=== PATIENT | male | born 1955 | race American Indian/Alaskan Native ===

== ENCOUNTER 2017-06-23 05:01 | Emergency (ER) | payer SELFPAY ==
[2017-06-23 05:28] LABS: Urine Drugs of Abuse Note Disclamer
[2017-06-23 05:48] LABS: Bilirubin,Urine NEG (Negative); Blood,Urine NEG (Negative); Ketones,Urine NEG (Negative); Leukocyte Esterase,Urine NEG (Negative); Mucus,Urine FEW /HPF; Nitrite,Urine NEG (Negative); Protein,Urine <15 mg/dL mg/dL (Negative); Urobilinogen,Urine < 2.0 mg/dL (<2.0); WBC,Urine < 1.0 /HPF (0.0-6.0)
[2017-06-23 05:53] LABS: Basophils % (Auto) 0.5 % (0.0-1.8); Eosinophils % (Auto) 2.7 % (0.0-4.3); Hematocrit 36.4 % (35.5-45.6); Hemoglobin 11.6 gm/dl (11.8-15.2); Mean Corpuscular HGB Conc 32 % (32-34); Mean Corpuscular Volume 70 fl (84-94); Platelet Count 302 K/mm3 (140-440); Red Blood Count 5.18 M/mm3 (3.65-5.03); White Blood Count 5.5 K/mm3 (4.5-11.0)
[2017-06-23 06:02] LABS: Mean Corpuscular Hemoglobin 22 pg (28-32)
[2017-06-23 06:03] LABS: Red Cell Distribution Width 20.2 % (13.2-15.2)
[2017-06-23 06:09] LABS: Anion Gap 16 mmol/L; BUN/Creatinine Ratio 24; Blood Urea Nitrogen 17 mg/dL (9-20); Calcium 8.6 mg/dL (8.4-10.2); Carbon Dioxide 26 mmol/L (22-30); Chloride 100.3 mmol/L (98-107); Glucose 172 mg/dL (75-100); Potassium 3.5 mmol/L (3.6-5.0); Sodium 139 mmol/L (137-145)
[2017-06-23] MEDS ORDERED: TYLENOL #3 PO ONE (07:22)
[2017-06-23] MEDS ORDERED: K-DUR PO ONE (07:22)
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
--- NOTE | 2017-06-23 09:39 | Cat Scan Report ---
FINAL REPORT EXAM: CT HEAD/BRAIN WO CON HISTORY: headache TECHNIQUE: CT of the Head without IV contrast. PRIORS: None currently available. FINDINGS: Series 4:47 demonstrates low-attenuation extra-axial fluid collections in both parietal regions with a thickness on the right measuring 10.7 mm and on left measuring 10.5 mm. Mixed densities identified but mostly low attenuation. In the more dependent areas particularly on series 4:39 there may be punctate areas of higher density. Findings probably represent bilateral subdural hematomas, probably subacute to chronic. No intraparenchymal hemorrhages. There is no evidence for acute ischemia. No herniation. There is no midline shift. There is no hydrocephalus. There is no mass. Age appropriate ochoa-white matter attenuation is noted. There is no calvarial fracture. Scalp contusion. Right lateral metallic artifact may represent a skin stable. The temporal bones demonstrate aerated mastoid air cells. The middle ears appear unremarkable. Paranasal sinuses are unremarkable. Globes are intact. IMPRESSION: Bilateral subdural hematomas in both parietal regions. Suspect subacute to chronic. June 23, 2017 at 0635 PST: I discussed findings over the phone with Dr. Jackson.
--- NOTE | 2017-06-23 09:46 | Cat Scan Report ---
FINAL REPORT EXAM: CT CERVICAL SPINE WO CON HISTORY: neck pain TECHNIQUE: CT of the Cervical Spine without IV contrast. Coronal and sagittal reformatted images were provided. PRIORS: None currently available. FINDINGS: Posterior fusion hardware at C4-C5 appears grossly intact but causes streak artifact. Anterior cervical device with ankylosis and interbody disc spacer C5-C6 also appears intact. Spinous process fixations also noted at C5-C6. Hardware is intact. Straightening of the normal lordotic alignment. Bilateral laminectomies noted at C3-C4. Series 2:30 8-39 demonstrates a comminuted fracture of the anterior left left central portion of the ring of C1 with mild 2.8 mm displacement. Fracture extends inferiorly toward the left lateral masses C1 and partially involves the inferior articular surface. Posteriorly fracture appears to be extending through the posterior lateral ring of C1 on series 2:39. This fracture extends through a horizontal vertebral foramina in and is minimally displaced. Series 2:84 demonstrates a linear low density at the posterior aspect of the vertebral body of C5 which may represent a nondisplaced hairline fracture or nutrient vessel. Fracture suspected given its unusual appearance and location. There is no atlantooccipital dislocation. Occipitiocervical joint is intact. C1-C2: Moderate arthrosis. Basilar invagination. Prominence of the transverse ligament. Mild spinal canal narrowing. Stir mild degenerative changes are present within cervical spine. No significant canal narrowing. Some neural foraminal narrowing identified. Prevertebral soft tissue structures are unremarkable. IMPRESSION: Fracture of C1 through the left anterior central portion extending inferiorly involving the left lateral mass and extending posteriorly through the left C1 ring partially involving the left vertebral foramen. Further evaluation with a CTA of the neck is recommended. Partial hairline fracture of the posterior vertebral body of C5 also suspected. Postsurgical changes and hardware appear intact without loosening or dislodgement. Straightening of the normal lordotic alignment. Degenerative discs.
[2017-06-23 14:22] VITALS: BP 126/71
--- NOTE | 2017-06-23 15:27 | XRay Report ---
FINAL REPORT EXAM: XR SHOULDER 2+V RT HISTORY: right shoulder pain TECHNIQUE: Three views right shoulder. PRIORS: None currently available. FINDINGS: There is no acute fracture. There is no evidence for healing fracture. There is no acute dislocation. Mild degenerative changes are present the glenohumeral and acromioclavicular joints. There is no cortical destruction to suggest osteomyelitis. There are no suspicious osseous lesions. There are no radiopaque foreign objects. IMPRESSION: No acute osseous findings. Osteoarthritis.
== END 2017-06-23 16:07 | disposition other institution (70) ==
LOC: ED 05:01
DX: S06.5X0A Traumatic subdural hemorrhage without loss of consciousness, initial encounter (principal); G44.319 Acute post-traumatic headache, not intractable; M54.2 Cervicalgia; M25.511 Pain in right shoulder; S12.040D Displaced lateral mass fracture of first cervical vertebra, subsequent encounter for fracture with routine healing; I10 Essential (primary) hypertension; E11.9 Type 2 diabetes mellitus without complications; F31.9 Bipolar disorder, unspecified; W18.39XA Other fall on same level, initial encounter; Y93.89 Activity, other specified; Y99.8 Other external cause status; Y92.89 Other specified places as the place of occurrence of the external cause
CPT/HCPCS: 36415; 70450; 72125; 73030; 80048; 80307; 81001; 85025; 99285; G0480; 80320

== ENCOUNTER 2018-09-14 15:31 | Emergency (ER) | payer MEDICARE ==
[2018-09-14] MEDS ORDERED: ZOFRAN IV ONE (15:50)
[2018-09-14] MEDS ORDERED: MORPHINE IV ONE (15:50)
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
[2018-09-14 19:25] VITALS: BP 127/64
== END 2018-09-14 19:17 | disposition home or self-care (01) ==
LOC: ED 15:31
DX: M54.2 Cervicalgia (principal); I10 Essential (primary) hypertension; E11.9 Type 2 diabetes mellitus without complications; F31.9 Bipolar disorder, unspecified; Z79.899 Other long term (current) drug therapy; Z91.013 Allergy to seafood
CPT/HCPCS: 70450; 72125; 96374; 96375; 99284; J2270; J2405